=== PATIENT | male | born 1935 | race Caucasian/White ===

== ENCOUNTER → 2020-01-19 08:29 | Outpatient (BNVA) | payer MEDICARE, SELFPAY | PROVIDERS: Family Provider Internal Medicine; PCP Internal Medicine; Visit Provider Urology | DX: N39.0 Urinary tract infection, site not specified (principal); R31.0 Gross hematuria; N40.1 Benign prostatic hyperplasia with lower urinary tract symptoms; N13.8 Other obstructive and reflux uropathy | CPT/HCPCS: 81001 ==

== ENCOUNTER → 2020-07-18 10:42 | Outpatient (BNVA) | payer MEDICARE, SELFPAY | PROVIDERS: Family Provider Internal Medicine; PCP Internal Medicine; Visit Provider Urology | DX: N13.8 Other obstructive and reflux uropathy (principal); N40.1 Benign prostatic hyperplasia with lower urinary tract symptoms; N39.0 Urinary tract infection, site not specified; R31.0 Gross hematuria | CPT/HCPCS: 81003 ==

== ENCOUNTER 2021-01-15 09:18 | Outpatient (CLI) | payer MEDICARE, SELFPAY ==
--- NOTE | 2021-01-15 09:15 | XRR_ITS ---
PROCEDURE INFORMATION: Exam: XR Abdomen Exam date and time: 01/14/2021 11:59 PM Age: 85 years old Clinical indication: Condition or disease; Other: Benign prostatic hyperplasia with lower urinary tract symptoms; Additional info: N40.1 - benign prostatic hyperplasia with lower urinary tract symptoms TECHNIQUE: Imaging protocol: XR of the abdomen. Views: Frontal supine view of the abdomen. 1 View. COMPARISON: CT Abdomen/Pelvis [facility] [id number] 07/07/2018 12:53 PM FINDINGS: Gastrointestinal tract: Normal. No bowel dilation. Organs: Multiple calcifications project on the lower pole of the right kidney a 2 mm calcification projects on the proximal right ureter at the L2 level. This is consistent with a proximal ureteral calculus. Bones/joints: Chronic degenerative changes are present in the spine with joint space narrowing sclerosis and osteophytes. XR/XR KUB [id number] IMPRESSION: 1. Right nephrolithiasis. 2. A 2 mm calcification projects on the proximal right ureter at the L2 level.
== END 2021-01-15 09:19 | disposition home or self-care (01) ==
LOC: RAD 09:21
PROVIDERS: PCP Internal Medicine; Visit Provider Urology
DX: N40.1 Benign prostatic hyperplasia with lower urinary tract symptoms (principal); N20.0 Calculus of kidney; N13.8 Other obstructive and reflux uropathy
CPT/HCPCS: 74018; 81003

== ENCOUNTER → 2021-07-18 11:14 | Outpatient (BNVA) | payer MEDICARE, SELFPAY | PROVIDERS: Visit Provider Urology | DX: N13.8 Other obstructive and reflux uropathy (principal); N40.1 Benign prostatic hyperplasia with lower urinary tract symptoms | CPT/HCPCS: 81003 ==

== ENCOUNTER 2022-01-14 09:24 | Outpatient (CLI) | payer MEDICARE, SELFPAY ==
--- NOTE | 2022-01-14 09:33 | XRR_ITS ---
PROCEDURE INFORMATION: Exam: XR Abdomen Exam date and time: 01/14/2022 9:34 AM Age: 86 years old Clinical indication: Other: UTI; Additional info: Recurrent UTI, kub @ [facility] on 01/14/22 @ 10. Appt to follow TECHNIQUE: Imaging protocol: XR of the abdomen. Views: Frontal supine view of the abdomen. 1 View. COMPARISON: CR XR KUB [id number] 01/15/2021 9:28 AM FINDINGS: Gastrointestinal tract: Normal. No bowel dilation. Organs: Right kidney again demonstrates an apparent cluster of calculi measuring up to 12.5 mm in aggregate with 2 additional more superior 1.7 mm calculi, similar to prior exam. Bones/joints: Multilevel degenerative changes throughout the spine. 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 XR/XR KUB [id number] IMPRESSION: 1. Right kidney again demonstrates an apparent cluster of calculi measuring up to 12.5 mm in aggregate with 2 additional more superior 1.7 mm calculi, similar to prior exam. 2. Multilevel degenerative changes throughout the spine. 3. 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
== END 2022-01-14 09:25 | disposition home or self-care (01) ==
PROVIDERS: Visit Provider Urology
DX: N39.0 Urinary tract infection, site not specified (principal); N20.0 Calculus of kidney; N40.1 Benign prostatic hyperplasia with lower urinary tract symptoms; N13.8 Other obstructive and reflux uropathy
CPT/HCPCS: 74018; 81003; 99213

== ENCOUNTER 2022-07-22 09:31 | Outpatient (CLI) | payer MEDICARE, SELFPAY ==
--- NOTE | 2022-07-22 09:47 | XR_ITS ---
WS: [id number] KUB, AP view, 07/22/2022 Clinical Data: Renal Calculi Comparison: KUB, 01/14/2022. Findings: There are multiple calcifications overlying the right lower pole of the right kidney which are slight ly larger. Fecal material and bowel gas obscure detail over both kidneys. No abnormal intraabdominal masses are seen. There is no dilatated small bowel or evidence of obstruct ion. There is a fecal impaction. There is degenerative change of the lumbar vertebral bodies with a slight dextroscoliosis. XR/XR KUB [id number] Impression: Right increase in size in right renal calcifications.
== END 2022-07-22 09:32 | disposition home or self-care (01) ==
LOC: RAD 09:36
PROVIDERS: PCP Family Medicine; Visit Provider Urology
DX: N20.0 Calculus of kidney (principal); N40.1 Benign prostatic hyperplasia with lower urinary tract symptoms; N13.8 Other obstructive and reflux uropathy; R31.0 Gross hematuria; R32 Unspecified urinary incontinence
CPT/HCPCS: 74018; 81003; 99213

== ENCOUNTER 2022-08-15 09:43 | Emergency (ER) | payer OTHER, MEDICARE, SELFPAY ==
[2022-08-15 09:50] VITALS: BP 138/67; PULSE 85; RESP 16; TEMP 36.4; O2SAT 96
--- NOTE | 2022-08-15 10:24 | CT_ITS ---
WS: [id number] CT CERVICAL TRAUMA TECHNIQUE: Noncontrast CT of the cervical spine with coronal and sagittal reformatted images. CLINICAL INFORMATION: trauma COMPARISON: None. DLP: 1523.[address] scans at [facility] use at least one of these dose optimization techniques: automated e xposure control; mA and/or kV adjustment per patient size (includes targeted exams where dose is matc hed to clinical indication); or iterative reconstruction. FINDINGS: Straightening of the normal cervical lordosis. Mild cervical curve. Normal C1-C2 articulation. Mild s pondylitic changes. Disc space narrowing throughout the cervical spine. Endplate osteophytic ridging. Normal craniocervical junction. Normal C1-C2 articulation. Dens is normal in appearance. Normal occi pital condyles. No high-grade spinal canal narrowing. Normal C1 ring. No evidence of acute fracture o r dislocation. Partially visualized LEFT upper lobe pulmonary mass suspicious for neoplasm measuring approximately 4 to 5 cm. Recommend further evaluation with chest CT. Expansile destructive bony lesion involving the RIGHT transverse process T1 with marked thinning and erosion of the cortex. This erodes the adjacent pedicle with slight erosion of the lamina. This exten ds into the adjacent 1st rib. Associated soft tissue component. Findings suspicious for metastatic di sease. This can be followed up with bone scan. Normal prevertebral soft tissues. Mastoids air cells are well aerated. CT/CT cervical spin wo con* [id number] IMPRESSION: 1. No evidence of acute fracture or dislocation. Mild spondylitic changes. 2. 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 Recommend further evaluation with chest CT. 3. Expansile destructive bony lesion involving the RIGHT transverse process T1 with marked thinning and erosion of the cortex with associated soft tissue com ponent. Involvement of the adjacent pedicle with erosion. This extends into the proximal RIGHT 1st rib. Findings suspicious for metastatic disease. This can b e followed up with bone scan Notified Kevin Coyle DO at 08/15/2022 11:22 AM.
--- NOTE | 2022-08-15 10:24 | XR_ITS ---
WS: [id number] XR pelvis 1-2V* [id number] REASON FOR EXAM: trauma FINDINGS: Imaging rotated and not optimal technique. There may be nondisplaced superior pubic ramus fractures. Moderately severe osteoarthritis of both hips. No hip fracture identified. XR/XR pelvis 1-2V* [id number] IMPRESSION: Possible pelvic fracture. Repeat examination recommended for resolution of this issue.
--- NOTE | 2022-08-15 10:24 | CT_ITS ---
WS: [id number] CT HEAD TECHNIQUE: Noncontrast CT of the head obtained from the skullbase to the vertex. CLINICAL INFORMATION: trauma COMPARISON: None. DLP: 1523.[address] scans at [facility] use at least one of these dose optimization techniques: automated e xposure control; mA and/or kV adjustment per patient size (includes targeted exams where dose is matc hed to clinical indication); or iterative reconstruction. FINDINGS: Scattered areas of subarachnoid hemorrhage overlying the LEFT parietal lobe posteriorly, RIGHT parasa gittal parietal lobe, RIGHT temporal lobe at the sylvian fissure, deep LEFT frontal white matter, and subdural hematoma inferior frontal lobe measuring 8 mm in maximum dimension. No significant mass eff ect or midline shift. No hydrocephalus. Tiny amount of subdural or subarachnoid blood products along the RIGHT inferior frontal lobe and falx. Advanced chronic encephalomalacia in the bilateral frontal lobes and inferior frontal lobes unchanged from previous. Encephalomalacia in the anterior temporal lobes. Moderate to advanced parenchymal vol ume loss. LEFT parasagittal nondisplaced calvarial fracture extending from the vertex to the frontal sinus. Thi s is in the area of contusion but was at least partially present in 2012. No evidence of healing.Asso ciated scalp edema overlying the frontal scalp extending to the vertex. CT/CT head wo con* [id number] IMPRESSION: 1. Scattered areas of subarachnoid hemorrhage as described above involving the LEFT greater than RIGHT parietal lobes, LEFT deep frontal white matter and lat eral frontotemporal regions, and RIGHT sylvian fissure. 2. Tiny amount of subdural or subarachnoid blood products along the RIGHT para sagittal falx and cortical margin of the RIGHT inferior frontal lobe. 3. Small amount of subdural hematoma in the LEFT inferior frontal lobe measuri ng 8 mm in maximum AP dimension. 4. No significant mass effect or midline shift. 5. Nondisplaced skull fracture extending from the vertex in the LEFT frontal c alvarium to the frontal sinus. Similar fracture was present in 2011 but no evid ence of healing. This is in the area of acute traumatic contusion today. 6. Paranasal sinuses and mastoid air cells are well aerated. Notified Kevin Coyle DO at 08/15/2022 10:54 AM.
--- NOTE | 2022-08-15 10:26 | ED_ITS ---
HPI - Fall General: Chief Complaint: Fall Stated Complaint: Fall Time Seen by Provider: 08/15/22 09:56 Source: patient Mode of arrival: EMS History of Present Illness: 87-year-old male lives at home with his 's main caregiver. He has been weak having difficulty with gait and stance and fell this morning actually uses a gait belt at home to try to manage him. He denies any significant injury he has an abrasion to the scalp and a skin tear to his left hand. He is not on any anticoagulants but does take aspirin. He has a significant tremor. He is able to answer most of my questions but he is slow to respond. There was no loss consciousness and he did not vomit. MD complaint: fall Onset (ago): minute(s) Fall from: standing Fall witnessed: yes, by family Place fall occurred: home Loss of consciousness: None Prolonged down time: no Symptoms prior to fall: none Context: tripped/slipped Location of injury: head Location of injury - extremities: Left: hand Associated symptoms-after fall: Reports difficulty walking, headache(s) and weakness; Denies abdominal pain, chest pain, confusion, hematuria, lightheadedness, neck pain, numbness, short of breath or vertigo Review of Systems Const: Denies: fever(s), chills, body aches, change in appetite, fatigue or malaise Eyes: Reports: change in vision and blurry vision ENMT: Denies: throat pain, ear or mastoid pain, nasal discharge or nasal congestion Card: Denies: chest pain or lightheadedness Resp: Denies: dyspnea, productive cough or non-productive cough GI: Denies: abdominal pain : Denies: hematuria Musc: Denies: neck pain Skin/Breast: Denies: rash or pruritus Neuro: Reports: headache(s), weakness in extremities and difficulty walking; Denies: vertigo or confusion PFSH ED PFSH: Medical History BPH w urinary obs/LUTS Elevated PSA Hematuria Recurrent UTI Renal calculi Urinary incontinence Surgical History H/O transurethral resection of prostate History of appendectomy History of cholecystectomy Hx of tonsillectomy Family History Father , at age 72 Alzheimer disease Mother , in her 90's Dementia Social History Smoking and tobacco status: former smoker Alcohol intake: never Marital status: service: Yes branch: [employer] Current occupational status: retired History of recent travel: No Physical Exam Const: GENERAL APPEARANCE: cooperative and comfortable ORIENTATION/CONSCIOUSNESS: Yes awake, Yes oriented to person, Yes oriented to place and Yes oriented to time HENMT: COMMON NORMALS: normocephalic, atraumatic and hearing grossly normal bilaterally HEAD & SCALP: normocephalic and atraumatic Resp: COMMON NORMALS: normal respiratory effort, No retractions, No use of accessory muscles and clear to auscultation bilaterally AUSCULTATION: clear to auscultation bilaterally Cardio: COMMON NORMALS: regular rate, regular rhythm and No murmurs present (Cardio) RATE: regular rate RHYTHM: regular rhythm GI: COMMON NORMALS: Soft to palpation and No hepatosplenomegaly present AUSCULTATION: Yes normoactive bowel sounds PALPATION: Yes Soft to palpation, No Tenderness to palpation present (GI), No Guarding due to palpation present (GI) and Yes No hepatosplenomegaly present Extremity: COMMON NORMALS: capillary refill normal, no clubbing, cyanosis or edema, no calf tenderness and no pedal edema OTHER: Anterior dorsum of the left hand also there is an abrasion on the crown of the scalp Neuro: SENSORIUM/ORIENTATION: Yes oriented to person, Yes oriented to place and Yes oriented to time Skin: COMMON NORMALS: no rashes or lesions noted GENERAL SKIN EXAM: no rashes or lesions noted Course Vital Signs: Vital signs: Vital Signs Temperature 97.6 F 08/15/22 09:50 Pulse Rate 85 08/15/22 09:50 Respiratory Rate 16 08/15/22 09:50 Blood Pressure 138/67 08/15/22 09:50 Pulse Oximetry 96 08/15/22 09:50 MDM - Fall Medical Decision Making Subdural hematoma with some punctate subarachnoid hemorrhage bleeding. 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 Mena's read. Discussed with the patient we will transfer patient to neurosurgery at [facility] Dr. Diallo is excepted ER to ER transfer patient transferred in stable condition Medical Records I reviewed the patient's medical records. Lab Data I reviewed the patient's lab results. 08/15/22 10:58 08/15/22 10:58 Radiology Impressions Cervical Spine CT 08/15/22 10:24 IMPRESSION: 1. No evidence of acute fracture or dislocation. Mild spondylitic changes. 2. 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 Recommend further evaluation with chest CT. 3. Expansile destructive bony lesion involving the RIGHT transverse process T1 with marked thinning and erosion of the cortex with associated soft tissue component. Involvement of the adjacent pedicle with erosion. This extends into the proximal RIGHT 1st rib. Findings suspicious for metastatic disease. This can be followed up with bone scan Notified Kevin Coyle DO at 08/15/2022 11:[address] 08/15/22 10:24 IMPRESSION: 1. Scattered areas of subarachnoid hemorrhage as described above involving the LEFT greater than RIGHT parietal lobes, LEFT deep frontal white matter and lateral frontotemporal regions, and RIGHT sylvian fissure. 2. Tiny amount of subdural or subarachnoid blood products along the RIGHT parasagittal falx and cortical margin of the RIGHT inferior frontal lobe. 3. Small amount of subdural hematoma in the LEFT inferior frontal lobe measuring 8 mm in maximum AP dimension. 4. No significant mass effect or midline shift. 5. Nondisplaced skull fracture extending from the vertex in the LEFT frontal calvarium to the frontal sinus. Similar fracture was present in 2011 but no evidence of healing. This is in the area of acute traumatic contusion today. 6. Paranasal sinuses and mastoid air cells are well aerated. Notified Kevin Coyle DO at 08/15/2022 10:54 AM. Pelvis X-Ray 08/15/22 10:24 IMPRESSION: Possible pelvic fracture. Repeat examination recommended for resolution of this issue. Laboratory Results WBC 9.4 10^3/uL (4.0-10.0) 08/15/22 10:58 RBC 3.92 10^6/uL (4.1-5.3) L 08/15/22 10:58 Hgb 10.5 g/dL (11.7-16.6) L 08/15/22 10:58 Hct 34.8 % (42.0-52.0) L 08/15/22 10:58 MCV 88.8 fl (80-94) 08/15/22 10:58 MCH 26.8 pg (28.0-34.0) L 08/15/22 10:58 MCHC 30.2 g/dL (30.0-36.0) 08/15/22 10:58 RDW 17.2 % (12.1-15.1) H 08/15/22 10:58 Plt Count 338 10^3/cmm (130-400) 08/15/22 10:58 MPV 9.4 fL (7.4-10.4) 08/15/22 10:58 Neut % (Auto) 79.7 % 08/15/22 10:58 Lymph % (Auto) 12.0 % 08/15/22 10:58 Blanco % (Auto) 5.8 % 08/15/22 10:58 Eos % (Auto) 1.5 % 08/15/22 10:58 Baso % (Auto) 0.5 % 08/15/22 10:58 Neut # (Auto) 7.47 10^3/uL (1.8-7.7) 08/15/22 10:58 Lymph # (Auto) 1.1 10^3/uL (0.8-4.8) 08/15/22 10:58 Blanco # (Auto) 0.5 10^3/uL (0.2-0.9) 08/15/22 10:58 Eos # (Auto) 0.1 10^3/uL (0.0-0.8) 08/15/22 10:58 Baso # (Auto) 0.1 10^3/uL (0.0-0.1) 08/15/22 10:58 Nucleated RBC % (auto) 0 % 08/15/22 10:58 Nucleated RBCs # 0.0 /100WBC 08/15/22 10:58 Sodium 139 mmol/L (136-145) 08/15/22 10:58 Potassium 4.4 mmol/L (3.5-5.1) 08/15/22 10:58 Chloride 101 mmol/L (98-107) 08/15/22 10:58 Carbon Dioxide 25 mmol/L (22-29) 08/15/22 10:58 Anion Gap 17.4 (5-19) 08/15/22 10:58 BUN 24 mg/dL (8-23) H 08/15/22 10:58 Creatinine 1.2 mg/dL (0.7-1.2) 08/15/22 10:58 GFR Calculation Not Reportable 08/15/22 10:58 Glucose 118 mg/dL (65-115) H 08/15/22 10:58 Calculated Osmolality 293 mOsm/kg (285-295) 08/15/22 10:58 Calcium 9.8 mg/dL (8.5-10.5) 08/15/22 10:58 Discharge Plan Discharge Condition: Stable Prescriptions: No Action multivitamin Tablet 1 tab PO DAILY amantadine HCl 100 mg tablet 100 mg PO BID amlodipine 5 mg tablet 5 mg PO QAM omeprazole 20 mg capsule,delayed release(DR/EC) 20 mg PO QAM aripiprazole 5 mg tablet 2.5 mg PO BEDTIME omega 4-arz-ozj-fish oil [Fish Oil] 1,000 mg (120 mg-180 mg) capsule 1 cap PO DAILY sulfamethoxazole-trimethoprim 800-160 mg tablet 1 tab PO BEDTIME finasteride 5 mg tablet 5 mg PO QAM amoxicillin 500 mg tablet 500 mg PO BID Qty: 28 8RF Rx Instructions: rx filled 08/14/22 14d/s Lipitor 20 mg Tablet 10 mg PO QPM Celexa 40 mg Tablet 20 mg PO QAM Tylenol Ex Str Rapid Release 500 mg Tablet 500 mg PO BEDTIME selenium 200 mcg Tablet 200 mcg PO DAILY Super B Complex Tablet 1 tab PO DAILY memantine 10 mg Tablet 10 mg PO BID vitamin E acetate 134 mg (200 unit) Capsule 134 mg PO DAILY Referrals: Dee Dee Velasquez MD [Primary Care Provider] - Coding Level of Care Code ED Bulk Intake Worker for Josh Reddy
[2022-08-15 11:19] LABS: Basophils # 0.1 10^3/uL (0.0-0.1); Basophils % 0.5 %; Eosinophils # 0.1 10^3/uL (0.0-0.8); Eosinophils % 1.5 %; Hematocrit 34.8 % (42.0-52.0); Hemoglobin 10.5 g/dL (11.7-16.6); Lymphocytes # 1.1 10^3/uL (0.8-4.8); Mean Corpuscular HGB Conc 30.2 g/dL (30.0-36.0); Mean Corpuscular Hemoglobin 26.8 pg (28.0-34.0); Mean Corpuscular Volume 88.8 fl (80-94); Mean Platelet Volume 9.4 fL (7.4-10.4); Monocytes # 0.5 10^3/uL (0.2-0.9); Monocytes % 5.8 %; Neutrophils # 7.47 10^3/uL (1.8-7.7); Neutrophils % 79.7 %; Nucleated Red Blood Cells % 0 %; Platelet Count 338 10^3/cmm (130-400); Red Blood Count 3.92 10^6/uL (4.1-5.3); Red Cell Distribution Width 17.2 % (12.1-15.1); White Blood Count 9.4 10^3/uL (4.0-10.0)
[2022-08-15 11:37] LABS: Anion Gap 17.4 (5-19); Blood Urea Nitrogen 24 mg/dL (8-23); Calcium 9.8 mg/dL (8.5-10.5); Carbon Dioxide 25 mmol/L (22-29); Chloride 101 mmol/L (98-107); Glucose 118 mg/dL (65-115); Osmolality Calculated 293 mOsm/kg (285-295); Potassium 4.4 mmol/L (3.5-5.1); Sodium 139 mmol/L (136-145)
[2022-08-15] MEDS: tetanus-dipt-pertussis 0.5 mL SDV IM (11:46)
== END 2022-08-15 14:30 | disposition home or self-care (01) ==
PROVIDERS: Emergency Provider Family Medicine; PCP Family Medicine
DX: S02.91XA Unspecified fracture of skull, initial encounter for closed fracture (principal); I60.8 Other nontraumatic subarachnoid hemorrhage; S00.01XA Abrasion of scalp, initial encounter; S61.412A Laceration without foreign body of left hand, initial encounter; W18.30XA Fall on same level, unspecified, initial encounter; Z23 Encounter for immunization
CPT/HCPCS: 36415; 70450; 72125; 72170; 80048; 85025; 90471; 90715; 99285